=== PATIENT | male | born 1945 | race Caucasian/White ===

== ENCOUNTER 2019-11-06 21:05 | Emergency (ER) | payer BC ==
[~2019-11-06] VITALS: Ht 182.9 cm; Wt 88.5 kg
[~2019-11-06 21:05] MED LIST: ALPR.25 PO; ASPI325 PO; ATORVASTATIN CA40 MG PO; Aspirin EC81 MG PO; HYDCHL25 PO; HYDR1TAB94 PO; IBUP400 PO; LOSARTAN POTASS25 MG PO; Metoprolol Succ25 MG PO; NITR.4SL MM; Nitroglycerin0.4 MG SL; Omeprazole20 M1 PO; Solaraze100 GM TOP; omeprazole 20 mg cap
[2019-11-06 21:28] LABS: BASOPHILS ABSOLUTE AUTO 0.09 K/mm3 (0.00-0.23); BASOPHILS PERCENT AUTO 1 % (0-2); EOSINOPHILS ABSOLUTE AUTO 0.36 K/mm3 (0.00-0.68); EOSINOPHILS PERCENT AUTO 5 % (0-6); Hematocrit 41.8 % (37.0-53.0); Hemoglobin 14.4 g/dL (13.5-17.5); IMMATURE GRAN ABSOLUTE AUTO 0.01 K/mm3 (0.00-0.10); IMMATURE GRAN PERCENT AUTO 0 % (0-1); LYMPHOCYTES ABSOLUTE AUTO 2.34 K/mm3 (0.84-5.20); LYMPHOCYTES PERCENT AUTO 32 % (21-46); MONOCYTES ABSOLUTE AUTO 0.72 K/mm3 (0.16-1.47); MONOCYTES PERCENT AUTO 10 % (4-13); Mean Corpuscular HGB 32.1 pg (26.0-34.0); Mean Corpuscular HGB Conc 34.4 g/dL (31.5-36.5); Mean Corpuscular Volume 93 fL (80-100); Mean Platelet Volume 10.6 fL (9.1-12.4); NEUTROPHILS ABSOLUTE AUTO 3.73 K/mm3 (1.96-9.15); NEUTROPHILS PERCENT AUTO 52 % (41-73); Platelet Count 236 K/mm3 (150-400); RDW Coefficient Variation 12.3 % (11.7-14.2); RDW Standard Deviation 42.9 fL (35.1-46.3); Red Blood Cell Count 4.48 M/mm3 (4.30-5.90); White Blood Cell Count 7.25 K/mm3 (4.00-11.30)
[2019-11-06 21:48] LABS: Alanine Aminotransfer (ALT/SGP 27 U/L (12-78); Albumin, Blood 3.7 g/dL (3.4-5.0); Alk Phos 69 U/L (50-136); Anion Gap 6 mmol/L (6-16); Aspartate Aminotrans (AST/SGOT 25 U/L (12-37); Bilirubin, Total 0.3 mg/dL (0.1-1.0); Blood Urea Nitrogen 20 mg/dL (8-24); Bun/Creatinine Ratio 18.5 (12.0-20.0); CO2, Blood 30 mmol/L (21-32); Chloride, Blood 102 mmol/L (98-108); Creatinine, Blood 1.08 mg/dL (0.60-1.20); Globulin, Blood 3.6 g/dL (2.2-4.0); Glomerular Filtration Rate >60 (60-); Glucose, Blood 154 mg/dL (70-99); Potassium, Blood 3.8 mmol/L (3.5-5.5); Sodium, Blood 138 mmol/L (136-145); Total Protein, Blood 7.3 g/dL (6.4-8.2); Troponin I <0.015 ng/mL (0.000-0.040)
== END 2019-11-06 22:59 | disposition home or self-care (01) ==
LOC: ER 21:05
PROVIDERS: Physician Assistant
DX: R07.89 Other chest pain (principal); R51 Headache; M54.2 Cervicalgia; I10 Essential (primary) hypertension; Z87.891 Personal history of nicotine dependence
CPT/HCPCS: 36415; 70496; 70498; 80053; 84484; 85025; 93005; 93010; 99285-25; Q9967

== ENCOUNTER 2023-05-20 13:51 | Day surgery (SDC) | payer BC ==
[~2023-05-20] VITALS: Ht 182.9 cm; Wt 77.5 kg
[2023-05-20] MEDS ORDERED: ATOR80 ×2 (14:27→14:28)
[2023-05-20] MEDS ORDERED: HYDCHL25 ×2 (14:27→14:29)
[2023-05-20] MEDS ORDERED: ASPI81CH ×2 (14:27→14:28)
[2023-05-20] MEDS ORDERED: OMEP20ER ×2 (14:28→14:29)
[2023-05-20 16:17] VITALS: BP 91/56
== END 2023-05-20 16:11 | disposition home or self-care (01) ==
LOC: ORSCSDS 13:51
PROVIDERS: Internal Medicine Gastroenterology
PROC: 0DJD8ZZ Inspection of Lower Intestinal Tract, Via Natural or Artificial Opening Endoscopic (ICD-10-PCS; principal; 2023-05-20 15:00)
PROC: 0DB98ZX Excision of Duodenum, Via Natural or Artificial Opening Endoscopic, Diagnostic (ICD-10-PCS; principal; 2023-05-20 15:00)
PROC: 0DB68ZX Excision of Stomach, Via Natural or Artificial Opening Endoscopic, Diagnostic (ICD-10-PCS; principal; 2023-05-20 15:00)
DX: R63.4 Abnormal weight loss (principal); K25.9 Gastric ulcer, unspecified as acute or chronic, without hemorrhage or perforation; K44.9 Diaphragmatic hernia without obstruction or gangrene; Z87.11 Personal history of peptic ulcer disease; Z12.11 Encounter for screening for malignant neoplasm of colon; K57.30 Diverticulosis of large intestine without perforation or abscess without bleeding; K64.8 Other hemorrhoids; Z86.010 Personal history of colon polyps; I25.2 Old myocardial infarction; Z79.82 Long term (current) use of aspirin; Z79.899 Other long term (current) drug therapy
CPT/HCPCS: 43239; G0105; 88305; 88342; J0461; J2001; J2405; J2704; J7120; Q9968

== ENCOUNTER 2024-05-04 16:10 | Emergency (ER) | payer BC ==
[~2024-05-04] VITALS: Ht 182.9 cm; Wt 74.8 kg
[~2024-05-04 16:10] MED LIST changes: +ASPI81CH; +ATOR80; +HYDCHL25; +OMEP20ER
[2024-05-04 20:30] VITALS: BP 114/76
[2024-05-04] MEDS ORDERED: Ibuprofen 400 MG Tab PO ONE (20:40)
== END 2024-05-04 21:01 | disposition left against medical advice (07) ==
LOC: ER 16:10
DX: M54.50 Low back pain, unspecified (principal); Z53.29 Procedure and treatment not carried out because of patient's decision for other reasons; W17.89XA Other fall from one level to another, initial encounter
CPT/HCPCS: 72100; 99282-25; A9270